=== PATIENT | male | born 1995 | race Caucasian/White ===

== ENCOUNTER 2020-04-13 08:31 | Emergency (ER) | payer BC ==
[~2020-04-13] VITALS: Ht 172.7 cm; Wt 95.3 kg
[2020-04-13] MEDS ORDERED: TYLENOL EXTRA500 MG PO (08:55)
== END 2020-04-13 10:20 | disposition home or self-care (01) ==
LOC: ED 08:31
DX: M25.531 Pain in right wrist (principal); Z88.8 Allergy status to other drugs, medicaments and biological substances
CPT/HCPCS: 73110; 99283-25